=== PATIENT | female | born 1970 | race Caucasian/White ===

== ENCOUNTER 2020-09-08 07:51 | Outpatient (CLI) | payer OTHER, SELFPAY ==
--- NOTE | ~2020-09-08 | MM_ITS ---
EXAMINATION: MM screening [facility] BI w adalberto HISTORY: Screening TECHNIQUE: Craniocaudal and mediolateral oblique 3-D tomosynthesis images were obtained and synthetic 2-D images were generated. CAD analysis was submitted and interpreted. COMPARISON: 01/07/2019 BREAST PARENCHYMAL COMPOSITION: The breasts are heterogeneously dense, which may obscure small masses . FINDINGS: There is no evidence of suspicious mass, calcification, or architectural distortion to sugg est malignancy in either breast. There has been no suspicious interval change. IMPRESSION: 1. No mammographic evidence of malignancy. 2. Recommend routine screening mammography in one year. BI-RADS Category 1: Negative Reviewed, dictated and finalized at location A. O PRODUCER
== END 2020-09-08 07:52 | disposition home or self-care (01) ==
LOC: CHSIMG 07:53
PROVIDERS: PCP Internal Medicine; Visit Provider Internal Medicine
DX: Z12.31 Encounter for screening mammogram for malignant neoplasm of breast (principal)
CPT/HCPCS: 77063; 77067

== ENCOUNTER 2020-09-26 10:53 | Outpatient (CLI) | payer OTHER, SELFPAY ==
--- NOTE | ~2020-09-26 | XR_ITS ---
EXAMINATION: XR chest 2V DATE: 09/26/2020 11:15 INDICATION: Cough, hypertension TECHNIQUE: PA and lateral views of the chest are obtained. COMPARISON: 08/14/2018 FINDINGS: The lungs are free of acute opacities. There is no pleural effusion or pneumothorax. The ca rdiomediastinal silhouette is normal. There is mild thoracic spondylosis. Surgical clips in the right upper quadrant are likely from prior cholecystectomy. IMPRESSION: 1. No acute cardiopulmonary abnormality. Reviewed, dictated and finalized at location A. L STENOGRAPHER
== END 2020-09-26 10:54 | disposition home or self-care (01) ==
LOC: CHSIMG 10:56
PROVIDERS: PCP Internal Medicine; Visit Provider Internal Medicine
DX: R05 Cough (principal)
CPT/HCPCS: 71046

== ENCOUNTER 2021-04-14 10:49 | Outpatient (CLI) | payer OTHER, SELFPAY ==
--- NOTE | ~2021-04-14 | XR_ITS ---
XR wrist RT min 3V, XR hand RT min 3V 04/14/2021 11:26 Indication: Polyarticular joint pain Procedure: 4 views right wrist and 4 views right hand Comparison: No prior studies for comparison. Findings: There is anatomic alignment. Scaphoid intact. No fracture, subluxation or dislocation. No f oreign bodies. No focal soft tissue abnormality. Impression: 1: No significant bone or joint abnormality. Reviewed, dictated and finalized at location A. Impression: 1: No significant bone or joint abnormality. Impression: 1: No significant bone or joint abnormality.
--- NOTE | ~2021-04-14 | XR_ITS ---
XR knee RT 3V 04/14/2021 11:27 Indication: Right knee pain Procedure: 3 views right knee Comparison: 02/28/2015 Findings: Mild osteoarthritis of the right knee. No fracture, subluxation or dislocation. No joint ef fusion. No focal soft tissue abnormality. Impression: 1: Mild osteoarthritis of the right knee. Reviewed, dictated and finalized at location A. Impression: 1: Mild osteoarthritis of the right knee.
--- NOTE | ~2021-04-14 | XR_ITS ---
XR wrist LT min 3V, XR hand LT min 3V 04/14/2021 11:26 Indication: Polyarticular joint pain Procedure: 4 views left wrist and 3 views left hand Comparison: No prior studies for comparison. Findings: There is anatomic alignment. Normal mineralization. No fracture, subluxation or dislocation . No significant soft tissue abnormality. No significant joint space narrowing. No erosive changes. Impression: 1: No significant bone or joint abnormality. Reviewed, dictated and finalized at location A. Impression: 1: No significant bone or joint abnormality. Impression: 1: No significant bone or joint abnormality.
--- NOTE | ~2021-04-14 | XR_ITS ---
EXAMINATION: XR hip BI wo pelvis DATE: 04/14/2021 11:25 INDICATION: Bilateral hip pain TECHNIQUE: Anteroposterior and frog-leg lateral views of the both the left and right hips were obtain ed. COMPARISON: CT pelvis dated 03/15/2014 FINDINGS: Bone alignment is normal. No fracture or suspected avascular necrosis. Mild osteoarthritis at the georgina ateral hips with mild nonuniform joint space narrowing and tiny marginal osteophytes. Similar there i s mild osteoarthritis at the bilateral sacroiliac joints. Chronic bone islands at the left superior p ubic ramus. IMPRESSION: 1. Mild bilateral hip osteoarthritis. No acute osseous abnormality. Reviewed, dictated and finalized at location A.
--- NOTE | ~2021-04-14 | XR_ITS ---
XR knee LT 3V 04/14/2021 11:27 Indication: Left knee pain Procedure: 3 views left knee Comparison: No prior studies for comparison. Findings: No fracture, subluxation or dislocation. Mild osteoarthritis of the left knee. No joint eff usion. No foreign bodies. Impression: 1: Mild osteoarthritis of the left knee. Reviewed, dictated and finalized at location A. Impression: 1: Mild osteoarthritis of the left knee.
== END 2021-04-14 10:50 | disposition home or self-care (01) ==
LOC: CHSIMG 10:51
PROVIDERS: PCP Internal Medicine; Visit Provider Internal Medicine
DX: M79.642 Pain in left hand (principal); M79.641 Pain in right hand; M25.532 Pain in left wrist; M25.531 Pain in right wrist; M25.552 Pain in left hip; M25.551 Pain in right hip; M25.562 Pain in left knee; M25.561 Pain in right knee
CPT/HCPCS: 73110; 73130; 73521; 73562

== ENCOUNTER 2021-06-03 07:14 | Outpatient (CLI) | payer OTHER, SELFPAY ==
--- NOTE | ~2021-06-03 | MR_ITS ---
EXAMINATION: MR brain/brain stem wo/w con DATE: 06/03/2021 08:18 INDICATION: Severe headache. TECHNIQUE: Magnetic resonance imaging (MRI) of the brain and brainstem was performed without and with 20 mL MultiHance intravenous contrast. Sequences included sagittal and axial T1-weighted FSE, axial diffusion-weighted FS EPI, axial T2*-weighted GRE, axial T2-weighted FLAIR Propeller, and axial T2-we ighted Propeller. Postcontrast sequences included axial and coronal T1-weighted FSE. Apparent diffusi on coefficient (ADC) maps were created. COMPARISON: None. FINDINGS: There is no intracranial hemorrhage, acute infarction, or abnormal intracranial mass lesion . The ventricles are normal in size. The mastoid air cells are normal. The orbits are normal. The par anasal sinuses are clear. IMPRESSION: 1. Normal brain. Reviewed, dictated and finalized at location A. NICAL SOLUTION ARCHITECT IMPRESSION: 1. Normal brain.
== END 2021-06-03 07:15 | disposition home or self-care (01) ==
PROVIDERS: PCP Internal Medicine; Visit Provider Internal Medicine
DX: R51.9 Headache, unspecified (principal)
CPT/HCPCS: 70553; A9577

== ENCOUNTER 2021-11-24 09:12 | Outpatient (CLI) | payer OTHER, SELFPAY ==
[2021-11-24 09:32] LABS: Add Urine Microscopic? NO; Appearance Urine Clear (Clear); Bilirubin Urine Negative (Negative); Blood Urine Negative (Negative); Color Urine Yellow (Yellow); Glucose Urine UA Negative (Negative); Ketones Urine Negative (Negative); Leukocyte Esterase Ur Negative LEU/UL (Negative); Nitrate Urine Negative (Negative); Protein Urine Negative (Negative); Urobilinogen Urine 0.2 mg/dL (0.2-1.0)
[2021-11-24 09:44] LABS: Basophils Absolute Auto 0.04 K/mm3 (0.00-0.10); Basophils Percent Auto 0.5 % (0.0-1.0); Eosinophils Absolute Auto 0.12 K/mm3 (0.02-0.50); Eosinophils Percent Auto 1.5 % (1.0-6.0); Hematocrit 46.5 % (35.0-49.0); Hemoglobin 15.3 g/dL (12.0-15.0); Immature Granulocyte Absolute 0.01 K/mm3 (0.00-0.00); Immature Granulocyte Percent A 0.1 % (0.0-0.0); Immature Platelet Fraction Pct 18.6 % (1.0-7.0); Lymphocytes Absolute Auto 1.93 K/mm3 (1.10-4.50); Lymphocytes Percent Auto 24.2 % (18.0-42.0); Mean Corpuscular HGB Conc 32.9 g/dL (32.0-36.0); Mean Corpuscular Hemoglobin 30.5 pg (27.0-31.0); Mean Corpuscular Volume 92.6 fL (78.0-102.0); Mean Platelet Volume 13.6 fl (9.2-11.8); Monocytes Absolute Auto 0.79 K/mm3 (0.10-0.90); Monocytes Percent Auto 9.9 % (2.0-11.0); Neutrophils Absolute Auto 5.1 K/mm3 (1.7-7.2); Neutrophils Percent Auto 63.8 % (50.0-70.0); Platelet Count Result 188 K/mm3 (150-420); Red Blood Count 5.02 M/mm3 (4.20-5.40); Red Cell Distribution Width 13.2 % (11.6-14.4)
[2021-11-24 09:52] LABS: Alanine Aminotransferase 23 U/L (14-59); Albumin Level 4.2 g/dL (3.4-5.0); Alkaline Phosphatase 99 U/L (46-116); Anion Gap 4 mmol/L (8-16); Aspartate Amino Transferase 14 U/L (15-37); Bilirubin,Total 0.4 mg/dL (0.00-1.00); Blood Urea Nitrogen 13 mg/dL (7-18); Calcium 9.6 mg/dL (8.5-10.1); Carbon Dioxide 34 mmol/L (21-32); Chloride 103 mmol/L (98-108); Cholesterol 157 mg/dL (0-200); Estimated Glomerular Filt Rate > 60; Glucose 95 mg/dL (70-99); HDL Direct 57 mg/dL (40-60); LDL Cholesterol Calculated 84 mg/dL (<130); Osmolality Calculated 292 mOsm/kg (285-295); Potassium 4.2 mmol/L (3.5-5.1); Sodium 141 mmol/L (136-145); Total Protein 8.2 g/dL (6.4-8.2); Triglycerides 79 mg/dL (0-150)
== END 2021-11-24 09:13 | disposition home or self-care (01) ==
LOC: CHSLAB 09:15
PROVIDERS: PCP Internal Medicine; Visit Provider Internal Medicine
DX: Z00.00 Encounter for general adult medical examination without abnormal findings (principal)
CPT/HCPCS: 36415; 80053; 80061; 81003; 85025; 85055

== ENCOUNTER 2022-02-28 14:18 | Outpatient (CLI) | payer OTHER, SELFPAY ==
--- NOTE | ~2022-02-28 | MM_ITS ---
EXAMINATION: MM screening [facility] BI w adalberto HISTORY: Screening mammogram TECHNIQUE: Craniocaudal and mediolateral oblique 3-D tomosynthesis images were obtained and synthetic 2-D images were generated. CAD analysis was submitted and interpreted. COMPARISON: 09/08/2020, 01/07/2019 BREAST PARENCHYMAL COMPOSITION: The breasts are heterogeneously dense, which may obscure small masses . FINDINGS: There is no suspicious mass, calcification, or architectural distortion to suggest malignan cy in either breast. There has been no suspicious interval change. IMPRESSION: 1. No mammographic evidence of malignancy. 2. Recommend routine screening mammography in one year. BI-RADS Category 1: Negative Reviewed, dictated and finalized at location A.
== END 2022-02-28 14:19 | disposition home or self-care (01) ==
LOC: CHSIMG 14:21
PROVIDERS: PCP Internal Medicine; Visit Provider Internal Medicine
DX: Z12.31 Encounter for screening mammogram for malignant neoplasm of breast (principal)
CPT/HCPCS: 77063; 77067

== ENCOUNTER 2022-04-30 17:01 | Outpatient (CLI) | payer OTHER, SELFPAY ==
--- NOTE | ~2022-04-30 | XR_ITS ---
EXAMINATION: XR chest 2V DATE: 04/30/2022 17:26 INDICATION: Acute cough. Wheezing. TECHNIQUE: Frontal and lateral views of the chest were obtained. COMPARISON: Chest single view 08/16/2021 FINDINGS: There is mild scarring at the lung apices. No pleural effusion or pneumothorax. The heart s ize is normal. Surgical clips in the right upper quadrant are likely from cholecystectomy. IMPRESSION: 1. Stable mild scarring at the lung apices. Reviewed, dictated and finalized at location A.
[2022-04-30 17:17] LABS: Hematocrit 43.2 % (35.0-49.0); Hemoglobin 14.3 g/dL (12.0-15.0); Mean Corpuscular HGB Conc 33.1 g/dL (32.0-36.0); Mean Corpuscular Hemoglobin 30.4 pg (27.0-31.0); Mean Corpuscular Volume 91.9 fL (78.0-102.0); Mean Platelet Volume 12.8 fl (9.2-11.8); Platelet Count Result 182 K/mm3 (150-420); Red Cell Distribution Width 13.2 % (11.6-14.4); White Blood Count 8.6 K/mm3 (4.8-10.8)
[2022-04-30 17:34] LABS: Band Neutrophils Percent 1 % (0-6); Basophils Percent Manual 0 % (0-1); Eosinophils Absolute Manual 0.17 K/mm3 (0.02-0.5); Eosinophils Percent Manual 2 % (1-6); Lymphocytes Absolute Manual 2.06 K/mm3 (1.1-4.5); Lymphocytes Percent Manual 24 % (18-44); Monocytes Absolute Manual 0.77 K/mm3 (0.1-0.90); Monocytes Percent Manual 9 % (3-9); Neutrophils Absolute Manual 5.59 K/mm3 (1.7-7.2); Neutrophils Percent Manual 64 % (46-73); Platelet Estimate Adequate (Adequate); Total Cells Counted 100
[2022-04-30 17:42] LABS: Alanine Aminotransferase 23 U/L (14-59); Albumin Level 4.2 g/dL (3.4-5.0); Alkaline Phosphatase 106 U/L (46-116); Anion Gap 7 mmol/L (8-16); Aspartate Amino Transferase 14 U/L (15-37); Bilirubin,Total 0.3 mg/dL (0.00-1.00); Blood Urea Nitrogen 13 mg/dL (7-18); Calcium 9.2 mg/dL (8.5-10.1); Carbon Dioxide 32 mmol/L (21-32); Chloride 100 mmol/L (98-108); Estimated Glomerular Filt Rate > 60; Glucose 84 mg/dL (70-99); Osmolality Calculated 287 mOsm/kg (285-295); Potassium 4.3 mmol/L (3.5-5.1); Sodium 139 mmol/L (136-145); Total Protein 7.5 g/dL (6.4-8.2)
== END 2022-04-30 17:02 | disposition home or self-care (01) ==
LOC: CHSLAB 17:03
PROVIDERS: PCP Internal Medicine; Visit Provider Internal Medicine
DX: R05.1 Acute cough (principal); R06.2 Wheezing
CPT/HCPCS: 36415; 71046; 80053; 85025

== ENCOUNTER 2022-09-29 08:10 | Outpatient (CLI) | payer OTHER, SELFPAY ==
[2022-09-29 08:27] LABS: Appearance Urine Clear (Clear); Bilirubin Urine Negative (Negative); Blood Urine Negative (Negative); Color Urine Yellow (Yellow); Glucose Urine UA Negative (Negative); Ketones Urine Negative (Negative); Leukocyte Esterase Ur Negative LEU/UL (Negative); Nitrate Urine Negative (Negative); Protein Urine Negative (Negative); Urobilinogen Urine 0.2 mg/dL (0.2-1.0)
[2022-09-29 08:29] LABS: Basophils Absolute Auto 0.04 K/mm3 (0.00-0.10); Basophils Percent Auto 0.5 % (0.0-1.0); Eosinophils Absolute Auto 0.15 K/mm3 (0.02-0.50); Hemoglobin 14.6 g/dL (12.0-15.0); Immature Granulocyte Absolute 0.02 K/mm3 (0.00-0.00); Immature Granulocyte Percent A 0.3 % (0.0-0.0); Immature Platelet Fraction Pct 19.5 % (1.0-7.0); Lymphocytes Absolute Auto 2.19 K/mm3 (1.10-4.50); Lymphocytes Percent Auto 29.6 % (18.0-42.0); Mean Corpuscular HGB Conc 33.2 g/dL (32.0-36.0); Mean Corpuscular Hemoglobin 30.2 pg (27.0-31.0); Mean Corpuscular Volume 91.1 fL (78.0-102.0); Mean Platelet Volume 13.3 fl (9.2-11.8); Monocytes Absolute Auto 0.65 K/mm3 (0.10-0.90); Monocytes Percent Auto 8.8 % (2.0-11.0); Neutrophils Absolute Auto 4.3 K/mm3 (1.7-7.2); Neutrophils Percent Auto 58.8 % (50.0-70.0); Platelet Count Result 185 K/mm3 (150-420); Red Blood Count 4.83 M/mm3 (4.20-5.40); Red Cell Distribution Width 13.2 % (11.6-14.4); White Blood Count 7.4 K/mm3 (4.8-10.8)
[2022-09-29 08:37] LABS: Add Urine Microscopic? NO
[2022-09-29 08:52] LABS: Alanine Aminotransferase 27 U/L (14-59); Albumin Level 3.9 g/dL (3.4-5.0); Alkaline Phosphatase 98 U/L (46-116); Anion Gap 7 mmol/L (8-16); Aspartate Amino Transferase 16 U/L (15-37); Bilirubin,Total 0.4 mg/dL (0.00-1.00); Blood Urea Nitrogen 13 mg/dL (7-18); Calcium 6.5 mg/dL (8.5-10.1); Carbon Dioxide 33 mmol/L (21-32); Chloride 105 mmol/L (98-108); Cholesterol 156 mg/dL (0-200); Creatine Kinase 82 U/L (26-192); Estimated Glomerular Filt Rate > 60; Glucose 100 mg/dL (70-99); HDL Direct 62 mg/dL (40-60); LDL Cholesterol Calculated 85 mg/dL (<130); Osmolality Calculated 300 mOsm/kg (285-295); Potassium 3.9 mmol/L (3.5-5.1); Sodium 145 mmol/L (136-145); Total Protein 7.3 g/dL (6.4-8.2); Triglycerides 46 mg/dL (0-150)
== END 2022-09-29 08:11 | disposition home or self-care (01) ==
LOC: CHSLAB 08:13
PROVIDERS: PCP Internal Medicine; Visit Provider Internal Medicine
DX: E78.2 Mixed hyperlipidemia (principal); I10 Essential (primary) hypertension
CPT/HCPCS: 36415; 80053; 80061; 81003; 82550; 85025; 85055

== ENCOUNTER 2022-10-22 13:22 | Outpatient (CLI) | payer OTHER, SELFPAY | END 2022-10-22 13:23 | disposition home or self-care (01) | LOC: CHSCARD 13:24 | PROVIDERS: PCP Internal Medicine; Visit Provider Internal Medicine | DX: R00.2 Palpitations (principal); R00.0 Tachycardia, unspecified | CPT/HCPCS: 99199 ==

== ENCOUNTER 2023-03-27 15:56 | Emergency (ER) | payer OTHER, SELFPAY ==
--- NOTE | ~2023-03-27 | XR_ITS ---
EXAMINATION: [id number]_CR DATE: 03/27/2023 17:19 INDICATION: 3 days of right rib pain TECHNIQUE: A frontal inspiratory view of the chest and 3 views of the right ribs were obtained. COMPARISON: Chest radiograph dated 04/30/2022 FINDINGS: Likely acute to subacute nondisplaced anterior right seventh rib fracture. No other rib fractures xiao ntified. No airspace opacities, pulmonary edema, pleural effusion or pneumothorax. Cardiomediastinal silhouette is normal. Cholecystectomy clips in right upper quadrant. IMPRESSION: 1. Nondisplaced anterior right seventh rib fracture. No acute cardiopulmonary disease. Reviewed, dictated and finalized at location A. IMPRESSION: 1. Nondisplaced anterior right seventh rib fracture. No acute cardiopulmonary d isease.
[2023-03-27 16:00] VITALS: BP 148/85; PULSE 72; RESP 18; TEMP 36.6; O2SAT 97
[2023-03-27 16:10] VITALS: RESP 18; O2SAT 97
--- NOTE | 2023-03-27 16:49 | ED.GENADULT ---
HPI - General Adult General Chief complaint: Unspecified Stated complaint: right rib pain Time Seen by Provider: 03/27/23 16:42 Related Data Home Medications Medication Instructions Recorded Confirmed atorvastatin 20 mg tablet 20 mg PO DAILY 03/27/23 03/27/23 losartan 100 1 tablet PO DAILY 03/27/23 03/27/23 mg-hydrochlorothiazide 12.5 mg tablet Allergies Allergy/AdvReac Type Severity Reaction Status Date / Time codeine Allergy Severe Unknown Verified 03/27/23 16:41 Course Vital Signs Vital signs: Vital Signs Temperature 36.6 C 03/27/23 16:00 Pulse Rate 72 03/27/23 16:00 Respiratory Rate 18 03/27/23 16:00 Blood Pressure 148/85 H 03/27/23 16:00 Pulse Oximetry 97 03/27/23 16:00 Oxygen Delivery Room Air 03/27/23 16:00 Temperature 36.6 C 03/27/23 16:00 Pulse Rate 72 03/27/23 16:00 Respiratory Rate 18 03/27/23 16:00 Blood Pressure 148/85 H 03/27/23 16:00 Pulse Oximetry 97 03/27/23 16:00 Oxygen Delivery Room Air 03/27/23 16:00 Medical Decision Making Vital Signs Vital Signs: Vital Signs Temperature 36.6 C 03/27/23 16:00 Pulse Rate 72 03/27/23 16:00 Respiratory Rate 18 03/27/23 16:00 Blood Pressure 148/85 H 03/27/23 16:00 Pulse Oximetry 97 03/27/23 16:00 Oxygen Delivery Room Air 03/27/23 16:00 Temperature 36.6 C 03/27/23 16:00 Pulse Rate 72 03/27/23 16:00 Respiratory Rate 18 03/27/23 16:00 Blood Pressure 148/85 H 03/27/23 16:00 Pulse Oximetry 97 03/27/23 16:00 Oxygen Delivery Room Air 03/27/23 16:00 Discharge Plan Discharge Prescriptions: No Action atorvastatin 20 mg tablet 20 mg PO DAILY losartan-hydrochlorothiazide 100-12.5 mg tablet 1 tablet PO DAILY Follow-up/Referrals: Kishor Ackerman MD [Primary Care Provider] -
--- NOTE | 2023-03-27 16:49 | ED.CHESTPAIN ---
HPI - Chest Pain General Chief Complaint: Unspecified Stated Complaint: right rib pain Time Seen by Provider: 03/27/23 16:42 Source: patient Mode of arrival: ambulatory Limitations: no limitations History of Present Illness HPI narrative: 52-year-old female, smoker with a history of hypertension, dyslipidemia presents to the ER with a 3 day history of -- right lower chest wall made worse by deep breathing and coughing. No fever or chills. No shortness of breath. MD complaint: chest pain Onset (ago): day(s) ( Started 3 days ago) Timing of current episode: constant Prior episodes: No Onset: during exertion Pain location: right chest Pain radiation: none Severity: severe Quality: aching and sharp Relieving factors: remaining still Exacerbating factors: exertion Treatment prior to arrival: none Risk Factors Coronary artery disease risk factors: smoking history, hyperlipidemia and hypertension Related Data On Oral Contraceptives: No Home Medications Medication Instructions Recorded Confirmed atorvastatin 20 mg tablet 20 mg PO DAILY 03/27/23 03/27/23 losartan 100 1 tablet PO DAILY 03/27/23 03/27/23 mg-hydrochlorothiazide 12.5 mg tablet Allergies Allergy/AdvReac Type Severity Reaction Status Date / Time codeine Allergy Severe Unknown Verified 03/27/23 16:41 Review of Systems Review of Systems: All systems reviewed & are unremarkable except as noted in HPI and below Constitutional: Constitutional: Reports as per HPI and Reports no additional constitutional complaints Eyes: Eyes: Reports as per HPI and Reports no additional eye complaints ENT: Reports system reviewed and no additional complaints, except as documented and Reports as per HPI Cardiovascular: Cardiovascular: Reports as per HPI and Reports no additional cardiovascular complaints Respiratory: Respiratory: Reports as per HPI and Reports no additional respiratory complaints Comments: right lower chest wall pain made worse by deep breathing and coughing. Gastrointestinal: Gastrointestinal: Reports as per HPI and Reports no additional gastrointestinal complaints Genitourinary: Genitourinary: Reports no additional female genitourinary complaints and Reports as per HPI Musculoskeletal: Musculoskeletal: Reports no additional musculoskeletal complaints and Reports as per HPI Integumentary/Breasts: Skin/Breast: Reports system reviewed and no additional complaints, except as docu and Reports as per HPI Neurologic: Reports system reviewed and no additional complaints, except as documented and Reports as per HPI Psychiatric: Psychiatric: Reports no additional psychiatric complaints and Reports as per HPI Endocrine: Endocrine: Reports no additional endocrine complaints and Reports as per HPI Hematologic/Lymphatic: Hematologic/Lymphatic: Reports no additional hematologic/lymphatic complaints and Reports as per HPI Allergic/Immunologic: Allergic/Immunologic: Reports no additional allergic/immunologic complaints and Reports as per HPI [facility] Past Medical History Medical History Dyslipidemia Hypertension Exam Const: General: healthy appearing and no acute distress Nutritional Appearance: well nourished Orientation/consciousness: patient oriented x3 Limitations: no limitations HENMT: Head: normal to inspection Ears: external ears normal Face/Nose/Sinus: Normal external nose present Face and sinus: normal facial exam Mouth: Yes Normal oral and palatal mucosa present Throat: posterior oropharynx normal Eyes: Conjunctivae: conjunctivae normal Pupils: Equal, round and reactive pupils present EOM: EOMs intact bilaterally Direct Ophthalmoscopy: no photophobia Neck: Neck: normal visual inspection, no lymphadenopathy and no meningeal signs Chest: Chest palpation & inspection: normal inspection of the chest Resp: Effort & Inspection: normal respiratory effort Auscultation: clear to
[2023-03-27 17:00] VITALS: BP 132/78; PULSE 75; RESP 18; O2SAT 97
[2023-03-27] MEDS: KETOROLAC 30 MG/ML VIAL (*BKC) IM (17:06)
[2023-03-27 17:56] VITALS: BP 131/68; PULSE 69; RESP 16; TEMP 36.3; O2SAT 98
== END 2023-03-27 18:11 | disposition home or self-care (01) ==
PROVIDERS: Emergency Provider Internal Medicine Critical Care Medicine; PCP Internal Medicine
DX: S22.31XA Fracture of one rib, right side, initial encounter for closed fracture (principal); I10 Essential (primary) hypertension; E78.5 Hyperlipidemia, unspecified; Z79.899 Other long term (current) drug therapy; X58.XXXA Exposure to other specified factors, initial encounter
CPT/HCPCS: 71101; 96372; 99283; J1885

== ENCOUNTER 2023-04-13 08:31 | Outpatient (CLI) | payer OTHER, SELFPAY ==
[2023-04-13 08:50] LABS: Appearance Urine Clear (Clear); Basophils Absolute Auto 0.04 K/mm3 (0.00-0.10); Basophils Percent Auto 0.6 % (0.0-1.0); Bilirubin Urine Negative (Negative); Blood Urine Negative (Negative); Color Urine Yellow (Yellow); Eosinophils Absolute Auto 0.19 K/mm3 (0.02-0.50); Eosinophils Percent Auto 2.9 % (1.0-6.0); Glucose Urine UA Negative (Negative); Hemoglobin 14.8 g/dL (12.0-15.0); Immature Granulocyte Absolute 0.02 K/mm3 (0.00-0.00); Immature Granulocyte Percent A 0.3 % (0.0-0.0); Ketones Urine Negative (Negative); Leukocyte Esterase Ur Negative (Negative); Lymphocytes Percent Auto 30.9 % (18.0-42.0); Mean Corpuscular HGB Conc 32.2 g/dL (32.0-36.0); Mean Corpuscular Hemoglobin 29.8 pg (27.0-31.0); Mean Corpuscular Volume 92.7 fL (78.0-102.0); Mean Platelet Volume 12.8 fl (9.2-11.8); Monocytes Absolute Auto 0.72 K/mm3 (0.10-0.90); Monocytes Percent Auto 11.1 % (2.0-11.0); Neutrophils Absolute Auto 3.5 K/mm3 (1.7-7.2); Neutrophils Percent Auto 54.2 % (50.0-70.0); Nitrate Urine Negative (Negative); Platelet Count Result 203 K/mm3 (150-420); Protein Urine Negative (Negative); Red Blood Count 4.96 M/mm3 (4.20-5.40); Red Cell Distribution Width 13.6 % (11.6-14.4); Urobilinogen Urine 0.2 mg/dL (0.2-1.0); White Blood Count 6.5 K/mm3 (4.8-10.8)
[2023-04-13 09:11] LABS: Add Urine Microscopic? NO
[2023-04-13 09:23] LABS: Alanine Aminotransferase 19 U/L (14-59); Alkaline Phosphatase 109 U/L (46-116); Anion Gap 6 mmol/L (8-16); Aspartate Amino Transferase 11 U/L (15-37); Bilirubin,Total 0.3 mg/dL (0.00-1.00); Blood Urea Nitrogen 16 mg/dL (7-18); Calcium 9.7 mg/dL (8.5-10.1); Carbon Dioxide 33 mmol/L (21-32); Chloride 104 mmol/L (98-108); Cholesterol 225 mg/dL (0-200); Creatine Kinase 63 U/L (26-192); Estimated Glomerular Filt Rate > 60; Glucose 93 mg/dL (70-99); HDL Direct 52 mg/dL (40-60); LDL Cholesterol Calculated 158 mg/dL (<130); Osmolality Calculated 297 mOsm/kg (285-295); Potassium 4.6 mmol/L (3.5-5.1); Sodium 143 mmol/L (136-145); Total Protein 7.3 g/dL (6.4-8.2); Triglycerides 73 mg/dL (0-150)
== END 2023-04-13 08:32 | disposition home or self-care (01) ==
LOC: CHSLAB 08:34
PROVIDERS: PCP Internal Medicine; Visit Provider Internal Medicine
DX: I10 Essential (primary) hypertension (principal); E78.5 Hyperlipidemia, unspecified
CPT/HCPCS: 36415; 80053; 80061; 81003; 82550; 85025

== ENCOUNTER 2023-11-29 07:43 | Outpatient (CLI) | payer OTHER, SELFPAY ==
[2023-11-29 08:23] LABS: Appearance Urine Clear (Clear); Bilirubin Urine Negative (Negative); Blood Urine Negative (Negative); Color Urine Light Yellow (Yellow); Glucose Urine UA Negative (Negative); Ketones Urine Negative (Negative); Leukocyte Esterase Ur Trace LEU/UL (Negative); Nitrate Urine Negative (Negative); Protein Urine Negative (Negative); Urobilinogen Urine 0.2 mg/dL (0.2-1.0)
[2023-11-29 08:24] LABS: Basophils Absolute Auto 0.03 K/mm3 (0.00-0.10); Basophils Percent Auto 0.4 % (0.0-1.0); Eosinophils Absolute Auto 0.11 K/mm3 (0.02-0.50); Eosinophils Percent Auto 1.5 % (1.0-6.0); Hematocrit 47.7 % (35.0-49.0); Hemoglobin 15.5 g/dL (12.0-15.0); Immature Granulocyte Absolute 0.01 K/mm3 (0.00-0.00); Immature Granulocyte Percent A 0.1 % (0.0-0.0); Immature Platelet Fraction Pct 19.9 % (1.0-7.0); Lymphocytes Absolute Auto 1.92 K/mm3 (1.10-4.50); Lymphocytes Percent Auto 26.6 % (18.0-42.0); Mean Corpuscular HGB Conc 32.5 g/dL (32-36); Mean Corpuscular Hemoglobin 29.7 pg (27.0-31.0); Mean Corpuscular Volume 91.4 fL (78.0-102.0); Mean Platelet Volume 13.4 fl (9.2-11.8); Monocytes Absolute Auto 0.66 K/mm3 (0.10-0.90); Monocytes Percent Auto 9.2 % (2.0-11.0); Neutrophils Absolute Auto 4.48 K/mm3 (1.70-7.20); Neutrophils Percent Auto 62.2 % (50.0-70.0); Platelet Count Result 173 K/mm3 (150-420); Red Blood Count 5.22 M/mm3 (4.20-5.40); Red Cell Distribution Width 13.7 % (11.6-14.4); White Blood Count 7.2 K/mm3 (4.8-10.8)
[2023-11-29 08:29] LABS: Add Urine Microscopic? YES; RBC Urine None seen /hpf (0-2); Squamous Epithelial Cell Urine Few /hpf (Few); WBC Urine None seen /hpf (0-3)
[2023-11-29 08:30] LABS: Bacteria Urine Trace /hpf
[2023-11-29 08:32] LABS: Hemoglobin A1C 5.3 % (<5.7)
[2023-11-29 08:45] LABS: Alanine Aminotransferase 27 U/L (14-59); Alkaline Phosphatase 101 U/L (46-116); Anion Gap 4 mmol/L (4-12); Aspartate Amino Transferase 17 U/L (15-37); Bilirubin,Total 0.4 mg/dL (0.00-1.00); Blood Urea Nitrogen 14 mg/dL (7-18); Calcium 9.6 mg/dL (8.5-10.1); Carbon Dioxide 35 mmol/L (21-32); Chloride 104 mmol/L (98-108); Cholesterol 166 mg/dL (0-200); Creatine Kinase 100 U/L (26-192); Estimated Glomerular Filt Rate > 60; Glucose 98 mg/dL (70-99); HDL Direct 56 mg/dL (40-60); LDL Cholesterol Calculated 88 mg/dL (<130); Osmolality Calculated 296 mOsm/kg (285-295); Potassium 4.3 mmol/L (3.5-5.1); Sodium 143 mmol/L (136-145); Total Protein 7.5 g/dL (6.4-8.2); Triglycerides 111 mg/dL (0-150)
== END 2023-11-29 07:44 | disposition home or self-care (01) ==
LOC: CHSLAB 07:49
PROVIDERS: PCP Internal Medicine; Visit Provider Internal Medicine
DX: E78.2 Mixed hyperlipidemia (principal); I10 Essential (primary) hypertension; R73.01 Impaired fasting glucose; N39.0 Urinary tract infection, site not specified
CPT/HCPCS: 36415; 80053; 80061; 81001; 82550; 83036; 85025; 85055

== ENCOUNTER 2024-05-01 07:33 | Outpatient (CLI) | payer OTHER, SELFPAY ==
--- NOTE | ~2024-05-01 | MM_ITS ---
EXAMINATION: MM screening [facility] BI w adalberto HISTORY: Screening TECHNIQUE: Craniocaudal and mediolateral oblique 3-D tomosynthesis images were obtained and synthetic 2-D images were generated. CAD analysis was submitted and interpreted. COMPARISON: 02/28/2022 BREAST PARENCHYMAL COMPOSITION: Not dense: There are scattered areas of fibroglandular density. FINDINGS: There is no evidence of suspicious mass, calcification, or architectural distortion to sugg est malignancy in either breast. There has been no suspicious interval change. IMPRESSION: 1. No mammographic evidence of malignancy. 2. Recommend routine screening mammography in one year. BI-RADS Category 1: Negative Reviewed, dictated and finalized at location B.
--- NOTE | ~2024-05-01 | CT_ITS ---
CT Scan of the Chest without Contrast: Clinical Indication: Lung cancer screening, nicotine dependence Technique: Contiguous sections were acquired throughout the chest without intravenous contrast. Dose reduction technique was used on this scan by utilizing automated exposure control and iterative recon struction technique. The dose-length product (DLP) was 93.92 mGy-cm. Findings: There is no evidence of any significant mediastinal, hilar or axillary lymphadenopathy. The mediastin al soft tissues appear normal. There is no evidence of pleural or pericardial effusion. 2 mm subpleural right upper lobe pulmonary nodule noted. Probable minimal emphysematous change. Images through the upper abdomen reveal no abnormalities. Impression: Lung RADS 2: Benign appearance. 12 month follow-up screening CT advised. Reviewed, dictated and finalized at [facility]. Impression: Lung RADS 2: Benign appearance. 12 month follow-up screening CT advised.
== END 2024-05-01 07:34 | disposition home or self-care (01) ==
PROVIDERS: PCP Internal Medicine; Visit Provider Nurse Practitioner Family
DX: Z12.31 Encounter for screening mammogram for malignant neoplasm of breast (principal); Z12.2 Encounter for screening for malignant neoplasm of respiratory organs; Z87.891 Personal history of nicotine dependence
CPT/HCPCS: 71271; 77063; 77067

== ENCOUNTER 2024-06-04 16:32 | Outpatient (CLI) | payer OTHER, SELFPAY ==
--- NOTE | ~2024-06-04 | XR_ITS ---
EXAMINATION: XR lumbar spine 2-3V DATE: 06/04/2024 17:01 INDICATION: Low back pain. TECHNIQUE: 3 views of lumbar spine were obtained. COMPARISON: None. FINDINGS: There is 5 degrees levocurvature of lumbar spine. Vertebral body heights are normal. There is moderately decreased disc height at L5-S1. There is multilevel facet joint osteoarthritis, severe in lower lumbar spine. Surgical clips in the right upper quadrant are likely from cholecystectomy. IMPRESSION: 1. Moderate lumbar spondylosis. Reviewed, dictated and finalized at location A. ORATE STRATEGY ASSOCIATE
== END 2024-06-04 16:33 | disposition home or self-care (01) ==
PROVIDERS: PCP Internal Medicine; Visit Provider Internal Medicine
DX: M54.50 Low back pain, unspecified (principal); M43.06 Spondylolysis, lumbar region
CPT/HCPCS: 72100

== ENCOUNTER 2024-12-09 22:25 | Emergency (ER) | payer OTHER, SELFPAY ==
--- NOTE | ~2024-12-09 | XR_ITS ---
CHEST RADIOGRAPH CLINICAL HISTORY: chest pain . COMPARISON: 04/30/2022 TECHNIQUE: Single portable view of the chest. FINDINGS The cardiomediastinal silhouette is unremarkable. The lungs are clear. IMPRESSION: No focal infiltrate or effusion. Reviewed, dictated and finalized at location A.
--- NOTE | ~2024-12-09 | CT_ITS ---
History: Headache PROCEDURE: CT head without contrast. COMPARISON: None. Reference is made to an MRI examination of the brain dated 06/03/2021, yielding tyra ign results. TECHNIQUE: Axial imaging of the head performed from the skull base to the vertex without IV contrast. Sagittal a nd coronal reformations obtained. DLP: 681 mGy-cm FINDINGS: The ventricles are normal in size, shape and position. There is no mass, mass effect or midline shift. There is no abnormal extra-axial fluid collection or intracranial hemorrhage. Visualized paranasal sinuses are clear. The mastoid air cells are well aerated. No acute displaced fractures within the overlying cranium. Impression: No acute intracranial hemorrhage or suspicious mass effect. If clinical suspicion persists, follow-up with MRI examination of the head is recommended. Reviewed, dictated and finalized at location A. Impression: No acute intracranial hemorrhage or suspicious mass effect. If clinical suspicion persists, follow-up with MRI examination of the head is r ecommended.
[2024-12-09 22:25] VITALS: BP 209/89; PULSE 88; RESP 18; TEMP 36; O2SAT 92
--- NOTE | 2024-12-09 22:25 | ECG_ITS ---
Test Date: 2024-12-09 22:29:50 Measurements Intervals [place] Rate: 77 P: 71 OR: 133 QRS: 59 QRSD: 93 T: 53 QT: 392 QTc: 444 Interpretive Statements SINUS RHYTHM POSSIBLE LEFT ATRIAL ENLARGEMENT [-0.1mV P-WAVE IN V1/V2] INTERPRETATION BASED ON A DEFAULT AGE OF 40 YEARS No previous ECG available for comparison Electronically Signed On 12-10-2024 14:00:18 CDT by Rebel Lovett M.D.
--- OUTSIDE RECORDS SUMMARY | 2024-12-09 22:26 | XMS_ITS | Referral Summary ---
Author Organization [facility] Address [address] [place] [address] Care Team Providers Care Asbestos Surveyor Name Role Phone Unknown, Notinfile Primary Care Provider Unavail able Social History Tobacco Use Types Packs/Day Years Used Date Smoking Tobacco: Never Assessed Personal Safety Answer Date Recorded Getting School Help Needed Not on file 08/06 Comments Unknown Sex and Gender Information Value Date Recorded Sex Assigned at Not on file Legal Sex Female 6:30 PM CDT Gender Identity Not on file Sexual Orientation Not on file Plan of Treatment Not on file Insurance [employer] Address: [facility] [id number] [place] [address] [facility] Care Teams Asbestos Surveyor Relationship Specialty Start Date End Date Unknown, Notinfile PCP - General 04/16/23
--- OUTSIDE RECORDS SUMMARY | 2024-12-09 22:26 | XMS_ITS | Clinical Summary ---
Author Organization [facility] Address [address] [place] [address] Care Team Providers Care Char Filter Tank Tender Name Role Phone Unknown, Notinfile Primary Care [...] Orientation Not on file Plan of Treatment Health Maintenance Due Date Last Done Comments Breast Cancer Screening-Mammogram 1972 Cervical Cancer Screening 1972 Colon Cancer Screening-Colonoscopy 1972 Depression Screening 1972 Hepatitis C Screening 1972 Hepatitis B Screening 1990 Regular Well Visit/Exam 18-64 1990 DTaP/Tdap/Td Vaccine (2 - Td or Tdap) 02/04/2023 02/04/2013 Influenza Vaccine (#1) 2024 04/14/2021 Zoster Vaccine Completed 04/10/2023, 10/16/2022 Pneumococcal vaccine <65 Aged Out No longer eligible based on patient's age to complete this topic Insurance [employer] Address: [facility] [id number] [place] [address] [facility] Care Teams Char Filter Tank Tender Relationship Specialty Start Date End Date Unknown, Notinfile PCP - General 04/16/23
--- NOTE | 2024-12-09 22:35 | ED_ITS ---
HPI - General Adult General Chief complaint: Unspecified Stated complaint: high blood pressure Time Seen by Provider: 12/09/24 22:26 Source: patient Mode of arrival: ambulatory Limitations: no limitations History of Present Illness HPI narrative: 52-year-old female, smoker with a history of hypertension, dyslipidemia, GERD presents to the ED with a 2 day history of -- interscapular pain and left inframammary pain. Pain is unrelated to activity. No radiation of the pain. Has nausea but no vomiting. No lightheadedness. no shortness of breath -- headache. Her headache is frontal and bitemporal. Headache is more than her usual high blood pressure related headache. no vision problems. No focal neuro deficit. -- Hypertension with a blood pressure of 200/ 86. The patient had been on losartan / hydrochlorothiazide which was discontinued and started on metoprolol. Subsequently metoprolol was discontinued and she was restarted on losartan 100 without additional HCTZ. The patient has developed higher blood pressures and leg swelling. -- worsening gastric reflux for which she is on proton pump inhibitor. Onset (ago): day(s) ( Two days) Location: chest and back Radiation: non-radiation Severity: moderate Severity scale (1-10): 5 Quality: aching Pain Consistency: constant Relieving factors: none Exacerbating factors: none Associated symptoms: chest pain, headaches and nausea/vomiting Treatments prior to arrival: none Related Data Home Medications ?Medication ?Instructions ?Recorded ?Confirmed ?Last Taken ?Type atorvastatin 20 mg tablet 20 mg PO DAILY 03/27/23 03/27/23 Unknown History losartan 100 1 tablet PO DAILY 03/27/23 03/27/23 Unknown History mg-hydrochlorothiazide 12.5 mg tablet Allergies Allergy/AdvReac Type Severity Reaction Status Date / Time codeine Allergy Severe Unknown Verified 12/09/24 23:01 Review of Systems 2 Review of Systems: All systems reviewed & are unremarkable except as noted in HPI and below Constitutional: Constitutional: Reports as per HPI and Reports no additional constitutional complaints Eyes: Eyes: Reports as per HPI and Reports no additional eye complaints ENT: Reports system reviewed and no additional complaints, except as documented and Reports as per HPI Cardiovascular: Cardiovascular: Reports as per HPI, Reports no additional cardiovascular complaints and Reports chest pain at rest Respiratory: Respiratory: Reports as per HPI, Reports no additional respiratory complaints and Reports cough Gastrointestinal: Gastrointestinal: Reports as per HPI, Reports no additional gastrointestinal complaints, Reports dyspepsia and Reports heartburn Genitourinary: Genitourinary: Reports no additional female genitourinary complaints and Reports as per HPI Musculoskeletal: Musculoskeletal: Reports no additional musculoskeletal complaints and Reports back pain ( Interscapular pain) Integumentary/Breasts: Skin/Breast: Reports system reviewed and no additional complaints, except as docu and Reports as per HPI Neurologic: Reports system reviewed and no additional complaints, except as documented, Reports as per HPI and Reports Normal hearing present Psychiatric: Psychiatric: Reports no additional psychiatric complaints and Reports as per HPI Endocrine: Endocrine: Reports no additional endocrine complaints and Reports as per HPI Hematologic/Lymphatic: Hematologic/Lymphatic: Reports no additional hematologic/lymphatic complaints and Reports as per HPI Allergic/Immunologic: Allergic/Immunologic: Reports no additional allergic/immunologic complaints and Reports as per HPI [facility] Past Medical History Medical History Dyslipidemia Hypertension Exam 2 Narrative: pulse of 70. Blood pressure 178/79. Oxygen saturation of 93% on room air Const: General: cooperative, healthy appearing and no acute distress O rientation/consciousness: oriented to person, oriented to place and oriented to time HENMT: Head: normal to inspection, normocephalic and atraumatic Ears: h earing grossly normal bilaterally and external ears normal Face/Nose/Sinus: N ormal external nose present and Normal nares present Face and sinus: normal facial exam Mouth: Yes Normal oral and palatal mucosa present, Yes lip normal and Yes tongue normal Throat: posterior oropharynx normal Eyes: General: appearance normal, both eyes and all related structures Neck: Neck: normal visual inspection, full ROM, no lymphadenopathy and no meningeal signs Chest: Chest palpation & inspection: normal inspection of the chest Resp: Effort & Inspection: normal respiratory effort and prolonged expiratory phase Auscultation: diminished lung sounds Cardio: Rate: regular rate Rhythm: regular rhythm Heart sounds: S1 normal heart sound present and S2 normal heart sound present GI: Inspection: normal to inspection Other: no tenderness/ rigidity /reboun : General: Yes no CVA tenderness Back/Spine/Pelvis: Back: no CVA tenderness Thoracic/Lumbar Spine: thoraco- lumbar ROM normal and thoracic spinal tenderness ( No thoracic/ lumbar spinal tenderness noted. No spasm of the paraspinal ) Skin: General skin exam: normal color and no rashes or lesions noted Neuro: General: oriented to person, oriented to place, oriented to time and patient oriented x3 Cranial nerves: Yes CN's II-XII intact bilaterally Extrem: General: normal to inspection, full ROM and capillary refill normal Course Course Emergency Course: hypertensive urgency-- blood pressure without any treatment has dropped to 152/78. Will change her losartan to losartan HCTZ. headache-- CT of the head did not show any acute findings. headache resolved with Dilaudid. The patient developed some nausea for which we gave Protonix. chest pain/interscapular pain-- EKG did not show any acute findings. The patient is noted to have a normal chest x-ray. Patient has a normal troponin and a normal D-dimer. Chest x-ray does not show any findings suggestive of dissection. Vital Signs Vital signs: Vital Signs Temperature 36.0 C L 12/09/24 22:25 Pulse Rate 88 12/09/24 22:25 Respiratory Rate 18 12/09/24 22:25 Blood Pressure 209/89 H 12/09/24 22:25 Pulse Oximetry 92 12/09/24 22:25 Oxygen Delivery Room Air 12/09/24 22:25 Temperature 36.0 C L 12/09/24 22: Pulse Rate 62 12/10/24 00:31 Respiratory Rate 22 H 12/10/24 00:31 Blood Pressure 163/77 H 12/10/24 00:31 Pulse Oximetry 92 12/10/24 00:31 Oxygen Delivery Room Air 12/10/24 00:31 Medical Decision Making [facility] Narrative Medical decision making narrative: Headache hypertensive urgency chest pain Differential Diagnosis Differential Diagnosis: pulmonary embolism, dissection of the aorta. Vital Signs Vital Signs: Vital Signs Temperature 36.0 C L 12/09/24 22:25 Pulse Rate 88 12/09/24 22:25 Respiratory Rate 18 12/09/24 22:25 Blood Pressure 209/89 H 12/09/24 22:25 Pulse Oximetry 92 12/09/24 22:25 Oxygen Delivery Room Air 12/09/24 22:25 Temperature 36.0 C L 12/09/24 22:25 Pulse Rate 62 12/10/24 00:31 Respiratory Rate 22 H 12/10/24 00:31 Blood Pressure 163/77 H 12/10/24 00:31 Pulse Oximetry 92 12/10/24 00:31 Oxygen Delivery Room Air 12/10/24 00:31 Lab Data 12/09/24 23:10 12/09/24 23:10 Labs: Lab Results 12/09/24 12/09/24 Range/Units 23:10 23:56 WBC 10.9 H (4.8-10.8) K/mm3 RBC 4.26 (4.20-5.40) M/mm3 Hgb 12.6 (12.0-15.0) g/dL Hct 38.9 (35.0-49.0) % MCV 91.3 (78.0-102.0) fL MCH 29.6 (27.0-31.0) pg MCHC 32.4 (32-36) g/dL RDW 13.3 (11.6-14.4) % Plt Count 156 (150-420) K/mm3 MPV 12.5 H (9.2-11.8) fl Immature Gran % (Auto) Not Reportable Neut % (Auto) Not Reportable Lymph % (Auto) Not Reportable [place] % (Auto) Not Reportable Eos % (Auto) Not Reportable Baso % (Auto) Not Reportable Lymph # (Auto) Not Reportable [place] # (Auto) Not Reportable Eos # (Auto) Not Reportable Baso # (Auto) Not Reportable Abs Immat Gran (auto) Not Reportable Absolute Neuts (auto) Not Reportable Absolute Nucleated RBC Not Reportable Total Counted 100 Neutrophils % (Manual) 72 (46-73) % Band Neutrophils % 0 (0-6) % Lymphocytes % (Manual) 22 (18-44) % Monocytes % (Manual) 4 (3-9) % Eosinophils % (Manual) 1 (1-6) % Basophils % (Manual) 1 (0-1) % Nucleated RBC % Not Reportable Abs Neuts (Manual) 7.84 H (1.7-7.2) K/mm3 Abs Lymphs (Manual) 2.39 (1.1-4.5) K/mm3 Abs Monocytes (Manual) 0.43 (0.1-0.90) K/mm3 Absolute Eos (Manual) 0.10 (0.02-0.50) K/mm3 Abs Basophils (Manual) 0.10 (0-0.1) K/mm3 Platelet Estimate Adequate (Adequate) Schistocytes Not Reportable D-Dimer 0.39 (0.19-0.50) mg/L Sodium 141 (137-145) mmol/L Potassium 3.5 (3.4-5.0) mmol/L Chloride 108 H (98-107) mmol/L Carbon Dioxide 29 (22-30) mmol/L Anion Gap 4 (4-12) mmol/L BUN 14 (7-17) mg/dL Creatinine 0.98 (0.7-1.0) mg/dL Estim Creat Clear Calc 70 ml/min Estimated GFR 60 (59 - ) Glucose 133 H (65-110) mg/dL Calculated Osmolality 294 (285-295) mOsm/kg Lactic Acid 0.9 (0.4-2.0) mmol/L Calcium 8.8 (8.4-10.2) mg/dL Magnesium 1.8 (1.6-2.3) mg/dL Total Bilirubin 0.4 (0.2-1.3) mg/dL AST 22 (14-36) U/L ALT 21 (6-35) U/L Alkaline Phosphatase 86 (38-126) U/L Troponin I < 0.012 (0.000-0.034) ng/mL Total Protein 7.0 (6.3-8.2) g/dL Albumin 4.2 (3.5-5.1) g/dL Urine Color Light yellow (Yellow) Urine Appearance Clear (Clear) Urine pH 5.5 (5.0-8.0) Ur Specific [place] <= 1.005 L (1.010-1.020) Urine Protein Negative (Negative) Urine Glucose (UA) Negative (Negative) Urine Ketones Negative (Negative) Ur Blood (Man) Negative (Negative) Urine Nitrate Negative (Negative) Urine Bilirubin Negative (Negative) Urine Urobilinogen 0.2 (0.2-1.0) mg/dL Leukocyte Esterase Rfl Negative (Negative) DIMPLE/UL ECG Data EKG #1: ECG completion date: 12/09/24 ECG completion time: 22:29 Interpretation: normal sinus rhythm. Normal axis. No ST - T-wave Discharge Plan Discharge Clinical Impression: Hypertensive urgency Chest pain Qualifiers: Chest pain type: unspecified Qualified Code(s): R07.9 - Chest pain, unspecified Headache Qualifiers: Headache type: unspecified Headache chronicity pattern: acute headache I ntractability: not intractable Qualified Code(s): R51.9 - Headache, unspecified Patient Disposition: Home Condition: Stable Instructions: Antibiotic Form, Chest Pain (ED), Acute Headache (DC), Hypertension (ED) Patient Language: Japanese Prescriptions: New hydrochlorothiazide 12.5 mg tablet 12.5 mg PO DAILY Qty: 60 0RF No Action atorvastatin 20 mg tablet 20 mg PO DAILY losartan-hydrochlorothiazide 100-12.5 mg tablet 1 tablet PO DAILY tramadol 50 mg tablet 50 mg PO Q6H PRN (Reason: pain) Qty: 10 0RF Follow-up/Referrals: Kishor Ackerman MD [Primary Care Provider] - Time of Disposition: 00:58
[2024-12-09 22:48] VITALS: BP 178/79; PULSE 72; RESP 26; O2SAT 95
--- OUTSIDE RECORDS SUMMARY | 2024-12-09 22:57 | XMS_ITS | Clinical Summary ---
Author Organization [facility] Address [address] [place] [address] Care Team Providers Care Wood Crew Supervisor Name Role Phone Unknown, Notinfile Primary Care [...] age to complete this topic Insurance [employer] Address: [address] [id number] [place] [address] [facility] Care Teams Wood Crew Supervisor Relationship Specialty Start Date End Date Unknown, Notinfile PCP - General 04/16/23
--- OUTSIDE RECORDS SUMMARY | 2024-12-09 22:57 | XMS_ITS | Referral Summary ---
Author Organization [facility] Address [address] [place] [address] Care Team Providers Care Coal Wheeler Name Role Phone Unknown, Notinfile Primary Care [...] of Treatment Not on file Insurance [employer] [facility] [address] Care Teams Coal Wheeler Relationship Specialty Start Date End Date Unknown, Notinfile PCP - General 04/16/23
[2024-12-09] MEDS: HYDROmorphone HCL INJ (*CRX) 2 MG/ML VIAL 0.5 MG IM (23:10)
[2024-12-09] MEDS: ONDANSETRON HCL ODT 4 MG TABLET PO (23:10)
[2024-12-09 23:13] LABS: Hematocrit 38.9 % (35.0-49.0); Hemoglobin 12.6 g/dL (12.0-15.0); Mean Corpuscular HGB Conc 32.4 g/dL (32-36); Mean Corpuscular Hemoglobin 29.6 pg (27.0-31.0); Mean Corpuscular Volume 91.3 fL (78.0-102.0); Mean Platelet Volume 12.5 fl (9.2-11.8); Platelet Count Result 156 K/mm3 (150-420); Red Blood Count 4.26 M/mm3 (4.20-5.40); Red Cell Distribution Width 13.3 % (11.6-14.4); White Blood Count 10.9 K/mm3 (4.8-10.8)
--- NOTE | 2024-12-09 23:13 | PC.NURSE ---
PATIENT BEING TRANSPORTED TO CT VIA WHEEL CHAIR
[2024-12-09 23:24] LABS: Alanine Aminotransferase 21 U/L (6-35); Albumin Level 4.2 g/dL (3.5-5.1); Alkaline Phosphatase 86 U/L (38-126); Anion Gap 4 mmol/L (4-12); Aspartate Amino Transferase 22 U/L (14-36); Bilirubin,Total 0.4 mg/dL (0.2-1.3); Blood Urea Nitrogen 14 mg/dL (7-17); Calcium 8.8 mg/dL (8.4-10.2); Carbon Dioxide 29 mmol/L (22-30); Chloride 108 mmol/L (98-107); Estimated CRCL calculation 70 ml/min; Estimated Glomerular Filt Rate 60; Glucose 133 mg/dL (65-110); Lactic Acid Reflex 0.9 mmol/L (0.4-2.0); Osmolality Calculated 294 mOsm/kg (285-295); Potassium 3.5 mmol/L (3.4-5.0); Sodium 141 mmol/L (137-145)
[2024-12-09 23:25] LABS: D Dimer 0.39 mg/L (0.19-0.50)
[2024-12-09 23:29] LABS: Magnesium 1.8 mg/dL (1.6-2.3)
[2024-12-09 23:33] LABS: Band Neutrophils Percent 0 % (0-6); Basophils Percent Manual 1 % (0-1); Eosinophils Percent Manual 1 % (1-6); Lymphocytes Absolute Manual 2.39 K/mm3 (1.1-4.5); Lymphocytes Percent Manual 22 % (18-44); Monocytes Absolute Manual 0.43 K/mm3 (0.1-0.90); Monocytes Percent Manual 4 % (3-9); Neutrophils Absolute Manual 7.84 K/mm3 (1.7-7.2); Neutrophils Percent Manual 72 % (46-73); Platelet Estimate Adequate (Adequate); Total Cells Counted 100
[2024-12-09 23:41] LABS: Troponin I < 0.012 ng/mL (0.000-0.034)
[2024-12-09 23:51] VITALS: BP 152/78; PULSE 71; RESP 20; O2SAT 92
[2024-12-09 23:59] LABS: Add Urine Microscopic? NO; Appearance Urine Clear (Clear); Bilirubin Urine Negative (Negative); Blood Urine Negative (Negative); Color Urine Light Yellow (Yellow); Glucose Urine UA Negative (Negative); Ketones Urine Negative (Negative); Leukocyte Esterase Ur Negative LEU/UL (Negative); Nitrate Urine Negative (Negative); Protein Urine Negative (Negative); Specific Grav Ur <= 1.005 (1.010-1.020); Urobilinogen Urine 0.2 mg/dL (0.2-1.0); pH Urine 5.5 (5.0-8.0)
--- NOTE | 2024-12-10 00:16 | PC.NURSE ---
PATIENT COMPLAINING OF UPPER EPIGASTRIC PAIN. RESTLESS IN THE ROOM. VS STABLE. WILL NOTIFY DR MONTAÑO
--- NOTE | 2024-12-10 00:23 | PC.NURSE ---
VERBAL ORDER RECEIVED AND PLACED INTO COMPUTER
[2024-12-10] MEDS: PANTOPRAZOLE 40 MG TABLET PO (00:28)
[2024-12-10 00:31] VITALS: BP 163/77; PULSE 62; RESP 22; O2SAT 92
[2024-12-10 01:15] VITALS: BP 154/80; PULSE 57; RESP 16; O2SAT 97
== END 2024-12-10 01:15 | disposition home or self-care (01) ==
PROVIDERS: Emergency Provider Internal Medicine Critical Care Medicine; PCP Internal Medicine
DX: I16.0 Hypertensive urgency (principal); R07.9 Chest pain, unspecified; R51.9 Headache, unspecified; I10 Essential (primary) hypertension; E78.5 Hyperlipidemia, unspecified; K21.9 Gastro-esophageal reflux disease without esophagitis
CPT/HCPCS: 36415; 70450; 71045; 80053; 81003; 83605; 83735; 84484; 85025; 85380; 93005; 96372; 99284; A9270; J1171

== ENCOUNTER 2025-03-12 07:35 | Outpatient (CLI) | payer OTHER, SELFPAY ==
--- NOTE | ~2025-03-12 | CT_ITS ---
EXAMINATION: CT diagnostic chest wo con DATE: 03/12/2025 08:32 INDICATION: Pulmonary nodule. TECHNIQUE: Computed tomography (CT) of the chest was performed without intravenous contrast. The dose-length product was 170.88 mGy-cm. COMPARISON: 05/01/2024 FINDINGS: No enlarged mediastinal or hilar lymph nodes. Heart is unenlarged. Thoracic aorta is not aneurysmal. Tracheobronchial tree is patent. No pneumothorax. No pleural effusion. No focal pulmonary consolidation. Minimal biapical scarring, unchanged. Minimal centrilobular emphysema in the upper lobes, unchanged. Stable 2 mm subpleural nodule in the right upper lobe. IMPRESSION: 1. Lung-RADS category 2: Benign appearance or behavior. Continue annual screening with noncontrast low-dose chest CT in 12 months. Reviewed, dictated and finalized at location Q. IMPRESSION: 1. Lung-RADS category 2: Benign appearance or behavior. Continue annual screeni ng with noncontrast low-dose chest CT in 12 months.
--- NOTE | ~2025-03-12 | CT_ITS ---
And CT of the Abdomen and Pelvis: Indication: Abdominal pain Technique: 2.5 mm axial scans were obtained through the abdomen and pelvis following intravenous administration of 100 cc of Omnipaque 350. Dose reduction technique was used on this scan by utilizing automated exposure control and iterative reconstruction technique. The dose-length product (DLP) was 508.49 mGy-cm. Findings: Scans through the lung bases are unremarkable. The liver, spleen, pancreas, adrenals and kidneys are within normal limits. Cholecystectomy clips are present. No evidence of aortic aneurysm. No lymphadenopathy. No bowel obstruction or bowel wall thickening. There is no evidence to suggest acute appendicitis. Images through the pelvis were performed. Urinary bladder unremarkable. No pelvic mass seen. No ascites. No ascites. Impression: No significant abnormalities seen. Reviewed, dictated and finalized at location . Impression: No significant abnormalities seen.
--- OUTSIDE RECORDS SUMMARY | 2025-03-12 07:39 | XMS_ITS | Clinical Summary ---
Author Organization [facility] Address [address] [place] [address] Care Team Providers Care Center Medical Specialist Name Role Phone Unknown, Notinfile Primary Care [...] or Tdap) 02/04/2023 02/04/2013 Influenza Vaccine (#1) 2025 04/14/2021 Zoster Vaccine Completed 04/10/2023, 10/16/2022 Pneumococcal vaccine <65 Aged Out No longer eligible based on patient's age to complete this topic Insurance [employer] Address: [facility] [id number] [place] [address] [facility] Care Teams Center Medical Specialist Relationship Specialty Start Date End Date Unknown, Notinfile PCP - General 04/16/23
[2025-03-12 08:01] LABS: Estimated Glomerular Filt Rate > 60
== END 2025-03-12 07:36 | disposition home or self-care (01) ==
LOC: CHSIMG 07:37
PROVIDERS: PCP Internal Medicine; Visit Provider Internal Medicine
DX: R91.1 Solitary pulmonary nodule (principal); R10.11 Right upper quadrant pain
CPT/HCPCS: 71250; 74177; Q9967